=== PATIENT | male | born 1950 ===

== ENCOUNTER → 2018-03-06 | Outpatient (CLI) | payer BC, MEDICARE | LOC: WOUNDCARE 10:12 | PROVIDERS: ATTEND Nurse Practitioner | DX: T81.31XA Disruption of external operation (surgical) wound, not elsewhere classified, initial encounter (principal); L03.313 Cellulitis of chest wall | CPT/HCPCS: 11042; 87070; 87075; 87077; 87186; 87205 ==

== ENCOUNTER → 2018-03-11 | Outpatient (CLI) | payer BC, MEDICARE | LOC: WOUNDCARE 09:05 | PROVIDERS: ATTEND Nurse Practitioner | DX: T81.31XA Disruption of external operation (surgical) wound, not elsewhere classified, initial encounter (principal); L03.313 Cellulitis of chest wall | CPT/HCPCS: 11042 ==